=== PATIENT | female | born 1975 ===

== ENCOUNTER → 2017-06-21 | Emergency (ER) | payer OTHER ==
[~2017-06-21] VITALS: Ht 162.6 cm; Wt 90.7 kg
[~2017-06-21] MED LIST: COZAAR50 MG; LUPRON DEPOT3.75 M1
== END | disposition left against medical advice (07) ==
LOC: ER 09:38
DX: Z53.20 Procedure and treatment not carried out because of patient's decision for unspecified reasons (principal)